=== PATIENT | male | born 1960 | race Caucasian/White ===

== ENCOUNTER 2021-11-09 11:48 | Day surgery (SDC) | payer MEDICAID ==
[~2021-11-09] VITALS: Ht 165.1 cm; Wt 79.4 kg
[2021-11-09] MEDS ORDERED: LIDOCAINE 2% 100 MG/5 ML UJET TP ONE (14:44)
[2021-11-09] MEDS ORDERED: fentaNYL citrate 0.05 MG/ML VIAL ONE (14:44)
[2021-11-09] MEDS ORDERED: fentaNYL citrate 0.05 MG/ML VIAL IVP ONE (15:30)
== END 2021-11-09 15:38 | disposition home or self-care (01) ==
LOC: MDS 11:48 → MMU 11:55 → MDS 15:38
PROVIDERS: ATTEND Internal Medicine Gastroenterology
DX: Z12.11 Encounter for screening for malignant neoplasm of colon (principal); K57.30 Diverticulosis of large intestine without perforation or abscess without bleeding; Z90.89 Acquired absence of other organs; Z79.899 Other long term (current) drug therapy; Z20.822 Contact with and (suspected) exposure to COVID-19
CPT/HCPCS: 45378; 87426; J3010